=== PATIENT | female | born 1965 | race African-American/Black ===

== ENCOUNTER 2018-12-06 22:42 | Emergency (ER) | payer SELFPAY ==
[~2018-12-06] VITALS: Ht 167.6 cm; Wt 95.0 kg
[2018-12-06] MEDS ORDERED: ONDANSETRON HCL 4MG/2ML INJ IV ONE (23:45)
[2018-12-06] MEDS ORDERED: KETOROLAC 15MG/ML VIAL IV ONE (23:45)
[2018-12-07] MEDS ORDERED: ONDANSETRON HCL 4MG/2ML INJ IV ONE (01:15)
[2018-12-07] MEDS ORDERED: PROPOFOL 200MG/20ML VIAL IV ONE ×2 (01:15→01:30)
[2018-12-07 07:10] VITALS: BP 144/81
== END 2018-12-07 07:27 | disposition home or self-care (01) ==
LOC: ER 22:42
DX: S82.851A Displaced trimalleolar fracture of right lower leg, initial encounter for closed fracture (principal); W01.0XXA Fall on same level from slipping, tripping and stumbling without subsequent striking against object, initial encounter; Y93.89 Activity, other specified; Y92.89 Other specified places as the place of occurrence of the external cause; I10 Essential (primary) hypertension
CPT/HCPCS: 27818; 73590; 73600; 73610; 96374; 96375; 96376; 99152; 99285; J1885; J2405; J2704; Z7610